=== PATIENT | male | born 1935 | race Caucasian/White ===

== ENCOUNTER 2020-09-26 13:59 | Inpatient (IN) | payer OTHER, MEDICARE ==
[2020-09-26 17:04] LABS: BASO % 0.7 % (0-2.0); LYMPH % 7.8 % (8-40); NEUT % 79.5 % (42.8-82.8); RDW 22.2 % (11.9-15.9); WHITE BLOOD COUNT 12.8 K/mm3 (4.0-10.0)
[2020-09-26 17:12] LABS: INR 1.4 (0.83-1.09)
[2020-09-26 17:15] LABS: ACTIVATED PTT 58.1 SECONDS (25.2-36.5)
[2020-09-26 17:25] LABS: POTASSIUM 4.4 mmol/L (3.5-5.1)
[2020-09-26 17:27] LABS: ALBUMIN 2.6 g/dl (3.4-5.0); BLOOD UREA NITROGEN 26.6 mg/dL (7-18); CALCIUM 8.2 mg/dL (8.5-10.1)
[2020-09-26 17:30] LABS: CREATININE 1.4 mg/dL (0.55-1.3)
[2020-09-26 17:38] LABS: ANISOCYTOSIS 3+; MACROCYTOSIS 1+
[2020-09-26 17:39] LABS: PLATELET ESTIMATE ADEQUATE; TARGET CELLS 1+; TEAR DROP CELLS 1+
[2020-09-26] MEDS ORDERED: ACETAMINOPHEN 500 MG TABLET (FP) PO ONE (18:09)
[2020-09-26] MEDS ORDERED: SODIUM CHLORIDE 500 ML IV STA (18:17)
[2020-09-26] MEDS ORDERED: ACETAMINOPHEN INJECTION 100 ML IVPB ONE (18:33)
[2020-09-26 19:51] LABS: EPI CELLS 4 /uL (0-25.1); HYALINE CASTS 12 /uL (0-3.1); URINE APPEARANCE TURBID; URINE BACTERIA >9,000 /uL (0-1359); URINE BILIRUBIN NEGATIVE (NEGATIVE); URINE COLOR ORANGE; URINE GLUCOSE (UA) NEGATIVE (NEGATIVE); URINE KETONE NEGATIVE (NEGATIVE); URINE LEUK ESTERASE 2+ (NEGATIVE); URINE NITRITE NEGATIVE (NEGATIVE); URINE PROTEIN 2+ (NEGATIVE); URINE RBC 2778 /uL (0-23.9); URINE WBC 987 /uL (0-25.8)
[2020-09-26] MEDS ORDERED: ACETAMINOPHEN 325 MG TABLET (FP) PO PRN (20:11)
[2020-09-26] MEDS ORDERED: PATIENT'S OWN MEDICATION (NON-FORMULARY) (Famotidine/Ca Carb/Mag Hydrox [Pepcid Complete T PO PRN (21:12)
[2020-09-27 00:35] LABS: RETICULOCYTES 3.05 % (0.5-1.5)
[2020-09-27 00:41] LABS: HEMATOCRIT 22.7 % (35.4-49); HEMOGLOBIN 7.3 GM/dL (11.7-16.9); MCH 34.4 pg (25.7-33.7); MEAN CELL VOLUME 106.8 fl (80-96); RBC 2.12 M/mm3 (4.00-5.60)
[2020-09-27 00:42] LABS: MCHC 32.3 g/dl (32.0-35.9); MEAN PLT VOLUME 8.9 fl (7.5-11.1); PLATELET COUNT 317 K/MM3 (134-434)
[2020-09-27] MEDS: ACETAMINOPHEN 500 MG TABLET (FP) PO PRN (02:24)
[2020-09-27] MEDS: MINERAL OIL/PETROLATUM,WHITE 3.5 GM TUBE OU SCH ×2 (02:42→13:22)
[2020-09-27 08:44] LABS: BASO % 0.5 % (0-2.0); EOS % 0.7 % (0-4.5); HEMATOCRIT 25.1 % (35.4-49); HEMOGLOBIN 8.2 GM/dL (11.7-16.9); LYMPH % 3.9 % (8-40); MCHC 32.8 g/dl (32.0-35.9); MEAN CELL VOLUME 103.7 fl (80-96); MEAN PLT VOLUME 8.6 fl (7.5-11.1); MONO % 6.6 % (3.8-10.2); NEUT % 88.3 % (42.8-82.8); PLATELET COUNT 303 K/MM3 (134-434); RBC 2.42 M/mm3 (4.00-5.60); RDW 22.1 % (11.9-15.9); WHITE BLOOD COUNT 17.4 K/mm3 (4.0-10.0)
[2020-09-27 08:57] LABS: POTASSIUM 4.7 mmol/L (3.5-5.1)
[2020-09-27] MEDS ORDERED: PT OWN MED DRAWER 7, Y5N ONE (09:00)
[2020-09-27 09:06] LABS: ALBUMIN 2.5 g/dl (3.4-5.0); BLOOD UREA NITROGEN 23.9 mg/dL (7-18)
[2020-09-27 09:07] LABS: BILIRUBIN,TOTAL 1.9 mg/dL (0.2-1); TOT PROT 6.1 g/dl (6.4-8.2)
[2020-09-27 09:08] LABS: CALCIUM 8.4 mg/dL (8.5-10.1); MAGNESIUM 2.2 mg/dL (1.8-2.4)
[2020-09-27 09:09] LABS: CREATININE 1.4 mg/dL (0.55-1.3); PHOSPHOROUS 3.4 mg/dL (2.5-4.9)
[2020-09-27] MEDS: PANTOPRAZOLE 40 MG TABLET PO SCH (09:20)
[2020-09-27] MEDS: TAMSULOSIN HCL 0.4 MG CAP PO SCH (09:20)
[2020-09-27] MEDS: CYANOCOBALAMIN 1,000 MCG TABLET (FP) PO SCH (09:20)
[2020-09-27] MEDS: ALLOPURINOL 300 MG TABLET (FP) PO SCH (09:21)
[2020-09-27] MEDS: METHADONE HCL 5 MG TABLET PO PRN (09:21)
[2020-09-27] MEDS: DULoxetine HCL 30 MG CAPSULE.DR PO SCH (13:22)
[2020-09-27] MEDS: BUMETANIDE 1 MG TABLET PO SCH (13:23)
[2020-09-27] MEDS: MULTIVITAMINS THER W-MINERALS COMBO TABLET (FP) PO SCH (13:23)
[2020-09-27] MEDS: PATIENT'S OWN MEDICATION (NON-FORMULARY) (Brimonidine Tartrate/Timolol [Combigan 0.2%-0.5% OU SCH (16:59)
[2020-09-27] MEDS: PATIENT'S OWN MEDICATION (NON-FORMULARY) (Brinzolamide 1 DROP Drops) OU SCH (16:59)
[2020-09-27] MEDS: PATIENT'S OWN MEDICATION (NON-FORMULARY) (Netarsudil Mesylat/Latanoprost [Rocklatan 0.02%- OU SCH (22:10)
[2020-09-28] MEDS: ACETAMINOPHEN 500 MG TABLET (FP) PO PRN ×2 (01:35→18:00)
[2020-09-28 09:25] LABS: HEMATOCRIT 24.6 % (35.4-49); HEMOGLOBIN 8.1 GM/dL (11.7-16.9); MCH 33.9 pg (25.7-33.7); MCHC 32.9 g/dl (32.0-35.9); MEAN PLT VOLUME 8.9 fl (7.5-11.1); PLATELET COUNT 285 K/MM3 (134-434); RBC 2.39 M/mm3 (4.00-5.60); RDW 21.5 % (11.9-15.9); WHITE BLOOD COUNT 25.8 K/mm3 (4.0-10.0)
[2020-09-28 09:45] LABS: POTASSIUM 4.6 mmol/L (3.5-5.1)
[2020-09-28 10:01] LABS: BLOOD UREA NITROGEN 23.4 mg/dL (7-18)
[2020-09-28 10:02] LABS: ALBUMIN 2.3 g/dl (3.4-5.0)
[2020-09-28 10:04] LABS: CREATININE 1.4 mg/dL (0.55-1.3)
[2020-09-28 10:05] LABS: BILIRUBIN,TOTAL 1.4 mg/dL (0.2-1); MAGNESIUM 1.8 mg/dL (1.8-2.4)
[2020-09-28 10:06] LABS: PHOSPHOROUS 3.2 mg/dL (2.5-4.9)
[2020-09-28 10:08] LABS: CALCIUM 8.3 mg/dL (8.5-10.1)
[2020-09-28 10:10] LABS: TOT PROT 5.6 g/dl (6.4-8.2)
[2020-09-28] MEDS: ALLOPURINOL 300 MG TABLET (FP) PO SCH (10:39)
[2020-09-28] MEDS: TAMSULOSIN HCL 0.4 MG CAP PO SCH (10:39)
[2020-09-28] MEDS: CYANOCOBALAMIN 1,000 MCG TABLET (FP) PO SCH (10:39)
[2020-09-28] MEDS: MULTIVITAMINS THER W-MINERALS COMBO TABLET (FP) PO SCH (10:39)
[2020-09-28] MEDS: PANTOPRAZOLE 40 MG TABLET PO SCH (10:40)
[2020-09-28] MEDS: BUMETANIDE 1 MG TABLET PO SCH (10:40)
[2020-09-28] MEDS: DULoxetine HCL 30 MG CAPSULE.DR PO SCH (10:40)
[2020-09-28] MEDS: METHADONE HCL 5 MG TABLET PO PRN (10:41)
[2020-09-28] MEDS: MINERAL OIL/PETROLATUM,WHITE 3.5 GM TUBE OU SCH ×2 (10:41→11:28)
[2020-09-28] MEDS: PATIENT'S OWN MEDICATION (NON-FORMULARY) (Brinzolamide 1 DROP Drops) OU SCH ×2 (11:03→11:52)
[2020-09-28] MEDS: PATIENT'S OWN MEDICATION (NON-FORMULARY) (Brimonidine Tartrate/Timolol [Combigan 0.2%-0.5% OU SCH ×2 (11:03→11:52)
[2020-09-28] MEDS: ARTIFICIAL TEARS (POLYVINYL ALCOHOL) OPTH DROPS OU PRN ×2 (11:48→22:48)
[2020-09-28 12:08] LABS: ANISOCYTOSIS 0; MACROCYTOSIS 0; PLATELET ESTIMATE NORMAL
[2020-09-28] MEDS ORDERED: CASIRIVIMAB (REGN10933) 1,200 MG, IMDEVIMAB (REGN10987) 1,200 MG in SODIUM CHLORIDE 250 ML IVPB ONE (15:30)
[2020-09-28] MEDS: PATIENT'S OWN MEDICATION (NON-FORMULARY) (Netarsudil Mesylat/Latanoprost [Rocklatan 0.02%- OU SCH (22:30)
[2020-09-29] MEDS: ACETAMINOPHEN 500 MG TABLET (FP) PO PRN ×3 (02:17→19:28)
[2020-09-29] MEDS: PATIENT'S OWN MEDICATION (NON-FORMULARY) (Omega-3s/Dha/Epa/Fish Oil [Fish Oil 1,200 Mg Sof PO SCH (07:33)
[2020-09-29] MEDS: PATIENT'S OWN MEDICATION (NON-FORMULARY) (Netarsudil Mesylat/Latanoprost [Rocklatan 0.02%- OU SCH ×2 (07:34→22:45)
[2020-09-29 08:49] LABS: BASO % 0.4 % (0-2.0); EOS % 2.1 % (0-4.5); HEMATOCRIT 22.9 % (35.4-49); HEMOGLOBIN 7.5 GM/dL (11.7-16.9); LYMPH % 7.1 % (8-40); MCH 33.7 pg (25.7-33.7); MCHC 32.8 g/dl (32.0-35.9); MEAN CELL VOLUME 102.7 fl (80-96); MEAN PLT VOLUME 9.1 fl (7.5-11.1); MONO % 7.9 % (3.8-10.2); NEUT % 82.5 % (42.8-82.8); PLATELET COUNT 267 K/MM3 (134-434); RBC 2.23 M/mm3 (4.00-5.60); RDW 21.5 % (11.9-15.9); WHITE BLOOD COUNT 14.2 K/mm3 (4.0-10.0)
[2020-09-29 09:07] LABS: POTASSIUM 4.2 mmol/L (3.5-5.1)
[2020-09-29 09:17] LABS: ALBUMIN 2.2 g/dl (3.4-5.0)
[2020-09-29 09:18] LABS: BILIRUBIN,TOTAL 0.9 mg/dL (0.2-1); TOT PROT 5.6 g/dl (6.4-8.2)
[2020-09-29 09:19] LABS: BLOOD UREA NITROGEN 26.6 mg/dL (7-18); CALCIUM 8.5 mg/dL (8.5-10.1); MAGNESIUM 1.9 mg/dL (1.8-2.4)
[2020-09-29 09:20] LABS: CREATININE 1.5 mg/dL (0.55-1.3)
[2020-09-29 09:22] LABS: PHOSPHOROUS 3.4 mg/dL (2.5-4.9)
[2020-09-29] MEDS: CYANOCOBALAMIN 1,000 MCG TABLET (FP) PO SCH (09:55)
[2020-09-29] MEDS: ALLOPURINOL 300 MG TABLET (FP) PO SCH (09:56)
[2020-09-29] MEDS: TAMSULOSIN HCL 0.4 MG CAP PO SCH (09:56)
[2020-09-29] MEDS: MULTIVITAMINS THER W-MINERALS COMBO TABLET (FP) PO SCH (09:56)
[2020-09-29] MEDS: PANTOPRAZOLE 40 MG TABLET PO SCH (09:56)
[2020-09-29] MEDS: DULoxetine HCL 30 MG CAPSULE.DR PO SCH (09:57)
[2020-09-29] MEDS: BUMETANIDE 1 MG TABLET PO SCH (09:57)
[2020-09-29] MEDS: PATIENT'S OWN MEDICATION (NON-FORMULARY) (Brimonidine Tartrate/Timolol [Combigan 0.2%-0.5% OU SCH (11:10)
[2020-09-29] MEDS: PATIENT'S OWN MEDICATION (NON-FORMULARY) (Brinzolamide 1 DROP Drops) OU SCH (11:10)
[2020-09-29] MEDS: MINERAL OIL/PETROLATUM,WHITE 3.5 GM TUBE OU SCH (11:10)
[2020-09-29] MEDS: hydrOXYzine PAMOATE 25 MG CAPSULE (FP) PO PRN (16:29)
[2020-09-29] MEDS ORDERED: PT OWN MED DRAWER 7, Y5N ONE (17:56)
[2020-09-29] MEDS: PATIENT'S OWN MEDICATION (NON-FORMULARY) (Pilocarpine Hcl [Pilocarpine Hcl] 5 MG Tablet) PO PRN (19:33)
[2020-09-30] MEDS: ARTIFICIAL TEARS (POLYVINYL ALCOHOL) OPTH DROPS OU PRN ×2 (02:04→11:00)
[2020-09-30] MEDS: hydrOXYzine PAMOATE 25 MG CAPSULE (FP) PO PRN (03:47)
[2020-09-30] MEDS: METHADONE HCL 10 MG TABLET PO PRN (08:16)
[2020-09-30] MEDS: MINERAL OIL/PETROLATUM,WHITE 3.5 GM TUBE OU SCH ×2 (09:30→11:08)
[2020-09-30 10:08] LABS: POTASSIUM 3.5 mmol/L (3.5-5.1)
[2020-09-30 10:10] LABS: ALBUMIN 2.2 g/dl (3.4-5.0); BLOOD UREA NITROGEN 25.9 mg/dL (7-18); CALCIUM 8.2 mg/dL (8.5-10.1)
[2020-09-30 10:14] LABS: CREATININE 1.5 mg/dL (0.55-1.3)
[2020-09-30 10:15] LABS: TOT PROT 5.6 g/dl (6.4-8.2)
[2020-09-30] MEDS: ALLOPURINOL 300 MG TABLET (FP) PO SCH (10:59)
[2020-09-30] MEDS: TAMSULOSIN HCL 0.4 MG CAP PO SCH (10:59)
[2020-09-30] MEDS: PATIENT'S OWN MEDICATION (NON-FORMULARY) (Brimonidine Tartrate/Timolol [Combigan 0.2%-0.5% OU SCH (10:59)
[2020-09-30] MEDS: MULTIVITAMINS THER W-MINERALS COMBO TABLET (FP) PO SCH (10:59)
[2020-09-30] MEDS: PATIENT'S OWN MEDICATION (NON-FORMULARY) (Brinzolamide 1 DROP Drops) OU SCH (10:59)
[2020-09-30] MEDS: CYANOCOBALAMIN 1,000 MCG TABLET (FP) PO SCH (10:59)
[2020-09-30] MEDS: PANTOPRAZOLE 40 MG TABLET PO SCH (10:59)
[2020-09-30] MEDS: DULoxetine HCL 30 MG CAPSULE.DR PO SCH (11:00)
[2020-09-30] MEDS: BUMETANIDE 1 MG TABLET PO SCH (11:00)
[2020-09-30] MEDS: PATIENT'S OWN MEDICATION (NON-FORMULARY) (Pilocarpine Hcl [Pilocarpine Hcl] 5 MG Tablet) PO PRN (11:01)
[2020-09-30 11:17] LABS: HEMATOCRIT 24.6 % (35.4-49); HEMOGLOBIN 8.1 GM/dL (11.7-16.9); MCH 33.7 pg (25.7-33.7); MEAN CELL VOLUME 102.4 fl (80-96); MEAN PLT VOLUME 9.3 fl (7.5-11.1); PLATELET COUNT 273 K/MM3 (134-434); RDW 21.7 % (11.9-15.9); WHITE BLOOD COUNT 9.4 K/mm3 (4.0-10.0)
[2020-09-30] MEDS ORDERED: PT OWN MED DRAWER 7, Y5N ONE (11:54)
[2020-09-30] MEDS: ACETAMINOPHEN 500 MG TABLET (FP) PO PRN (23:08)
[2020-09-30] MEDS: PATIENT'S OWN MEDICATION (NON-FORMULARY) (Netarsudil Mesylat/Latanoprost [Rocklatan 0.02%- OU SCH (23:08)
[2020-10-01] MEDS: hydrOXYzine PAMOATE 25 MG CAPSULE (FP) PO PRN ×2 (01:05→21:23)
[2020-10-01] MEDS ORDERED: PT OWN MED DRAWER 7, Y5N ONE ×4 (09:17→20:55)
[2020-10-01] MEDS: METHADONE HCL 10 MG TABLET PO PRN (09:52)
[2020-10-01] MEDS: CYANOCOBALAMIN 1,000 MCG TABLET (FP) PO SCH (09:53)
[2020-10-01] MEDS: MULTIVITAMINS THER W-MINERALS COMBO TABLET (FP) PO SCH (09:53)
[2020-10-01] MEDS: ALLOPURINOL 300 MG TABLET (FP) PO SCH (09:53)
[2020-10-01] MEDS: TAMSULOSIN HCL 0.4 MG CAP PO SCH (09:53)
[2020-10-01] MEDS: PANTOPRAZOLE 40 MG TABLET PO SCH (09:54)
[2020-10-01] MEDS: DULoxetine HCL 30 MG CAPSULE.DR PO SCH (09:56)
[2020-10-01] MEDS: PATIENT'S OWN MEDICATION (NON-FORMULARY) (Brinzolamide 1 DROP Drops) OU SCH (09:56)
[2020-10-01 09:57] LABS: HEMATOCRIT 26.8 % (35.4-49); HEMOGLOBIN 8.9 GM/dL (11.7-16.9); MCH 33.6 pg (25.7-33.7); MEAN CELL VOLUME 101.7 fl (80-96); MEAN PLT VOLUME 8.9 fl (7.5-11.1); PLATELET COUNT 293 K/MM3 (134-434); RBC 2.63 M/mm3 (4.00-5.60); RDW 21.6 % (11.9-15.9); WHITE BLOOD COUNT 10.2 K/mm3 (4.0-10.0)
[2020-10-01] MEDS: BUMETANIDE 1 MG TABLET PO SCH (09:57)
[2020-10-01] MEDS: MINERAL OIL/PETROLATUM,WHITE 3.5 GM TUBE OU SCH (10:10)
[2020-10-01 10:21] LABS: POTASSIUM 3.7 mmol/L (3.5-5.1)
[2020-10-01 10:22] LABS: CALCIUM 8.9 mg/dL (8.5-10.1)
[2020-10-01 10:23] LABS: BLOOD UREA NITROGEN 24.6 mg/dL (7-18); MAGNESIUM 1.9 mg/dL (1.8-2.4)
[2020-10-01 10:26] LABS: CREATININE 1.5 mg/dL (0.55-1.3); PHOSPHOROUS 3.4 mg/dL (2.5-4.9)
[2020-10-01] MEDS: PATIENT'S OWN MEDICATION (NON-FORMULARY) (Pilocarpine Hcl [Pilocarpine Hcl] 5 MG Tablet) PO PRN (14:36)
[2020-10-01] MEDS: ACETAMINOPHEN 500 MG TABLET (FP) PO PRN (14:36)
[2020-10-01] MEDS: PATIENT'S OWN MEDICATION (NON-FORMULARY) (Brimonidine Tartrate/Timolol [Combigan 0.2%-0.5% OU SCH (15:19)
[2020-10-01] MEDS: TIMOLOL 0.5% OPHTHALMIC SOL 5 ML BOTTLE OU SCH (17:25)
[2020-10-01] MEDS: BRIMONIDINE TARTRATE 0.2% OPHTHALMIC 5 ML BOTTLE OU SCH (17:26)
[2020-10-01] MEDS: PATIENT'S OWN MEDICATION (NON-FORMULARY) (Netarsudil Mesylat/Latanoprost [Rocklatan 0.02%- OU SCH (21:23)
[2020-10-02] MEDS: ACETAMINOPHEN 500 MG TABLET (FP) PO PRN ×2 (03:06→13:22)
[2020-10-02] MEDS ORDERED: PT OWN MED DRAWER 7, Y5N ONE ×4 (03:25→20:44)
[2020-10-02] MEDS: PATIENT'S OWN MEDICATION (NON-FORMULARY) (Pilocarpine Hcl [Pilocarpine Hcl] 5 MG Tablet) PO PRN ×3 (03:26→21:03)
[2020-10-02 09:40] LABS: HEMATOCRIT 27.2 % (35.4-49); HEMOGLOBIN 9.2 GM/dL (11.7-16.9); MCH 34.2 pg (25.7-33.7); MCHC 33.7 g/dl (32.0-35.9); MEAN CELL VOLUME 101.4 fl (80-96); MEAN PLT VOLUME 8.8 fl (7.5-11.1); PLATELET COUNT 280 K/MM3 (134-434); RBC 2.68 M/mm3 (4.00-5.60); RDW 21.3 % (11.9-15.9); WHITE BLOOD COUNT 10.9 K/mm3 (4.0-10.0)
[2020-10-02] MEDS: PANTOPRAZOLE 40 MG TABLET PO SCH (09:52)
[2020-10-02] MEDS: MULTIVITAMINS THER W-MINERALS COMBO TABLET (FP) PO SCH (09:52)
[2020-10-02] MEDS: METHADONE HCL 10 MG TABLET PO PRN (09:52)
[2020-10-02] MEDS: ALLOPURINOL 300 MG TABLET (FP) PO SCH (09:52)
[2020-10-02] MEDS: DULoxetine HCL 30 MG CAPSULE.DR PO SCH (09:53)
[2020-10-02] MEDS: BUMETANIDE 1 MG TABLET PO SCH (09:53)
[2020-10-02] MEDS: BISACODYL 5 MG TABLET.DR (FP) PO PRN (09:53)
[2020-10-02] MEDS: hydrOXYzine PAMOATE 25 MG CAPSULE (FP) PO PRN ×2 (09:53→21:02)
[2020-10-02] MEDS: TAMSULOSIN HCL 0.4 MG CAP PO SCH (09:53)
[2020-10-02] MEDS: BRIMONIDINE TARTRATE 0.2% OPHTHALMIC 5 ML BOTTLE OU SCH (09:54)
[2020-10-02] MEDS: MINERAL OIL/PETROLATUM,WHITE 3.5 GM TUBE OU SCH (09:55)
[2020-10-02] MEDS: CYANOCOBALAMIN 1,000 MCG TABLET (FP) PO SCH (09:55)
[2020-10-02] MEDS: PATIENT'S OWN MEDICATION (NON-FORMULARY) (Brinzolamide 1 DROP Drops) OU SCH (09:55)
[2020-10-02] MEDS: TIMOLOL 0.5% OPHTHALMIC SOL 5 ML BOTTLE OU SCH (09:55)
[2020-10-02] MEDS ORDERED: TIMOLOL 0.5% OPHTHALMIC SOL 5 ML BOTTLE OU SCH (10:00)
[2020-10-02] MEDS ORDERED: BRIMONIDINE TARTRATE 0.2% OPHTHALMIC 5 ML BOTTLE OU SCH (10:00)
[2020-10-02] MEDS ORDERED: DOCUSATE SODIUM 100 MG CAPSULE (FP) PO PRN (13:23)
[2020-10-02] MEDS: POLYETHYLENE GLYCOL 3350 119 GM BTL PO PRN (14:41)
[2020-10-02] MEDS: ARTIFICIAL TEARS (POLYVINYL ALCOHOL) OPTH DROPS OU PRN (14:42)
[2020-10-02 16:11] VITALS: BMI 28.3
[2020-10-02] MEDS: PATIENT'S OWN MEDICATION (NON-FORMULARY) (Netarsudil Mesylat/Latanoprost [Rocklatan 0.02%- OU SCH ×2 (20:20→21:13)
[2020-10-03] MEDS ORDERED: PT OWN MED DRAWER 7, Y5N ONE ×3 (05:20→11:21)
[2020-10-03] MEDS: PANTOPRAZOLE 40 MG TABLET PO SCH (11:27)
[2020-10-03] MEDS: CYANOCOBALAMIN 1,000 MCG TABLET (FP) PO SCH (11:27)
[2020-10-03] MEDS: MULTIVITAMINS THER W-MINERALS COMBO TABLET (FP) PO SCH (11:27)
[2020-10-03] MEDS: TAMSULOSIN HCL 0.4 MG CAP PO SCH (11:27)
[2020-10-03] MEDS: ALLOPURINOL 300 MG TABLET (FP) PO SCH (11:27)
[2020-10-03] MEDS: hydrOXYzine PAMOATE 25 MG CAPSULE (FP) PO PRN (11:31)
[2020-10-03] MEDS: BUMETANIDE 1 MG TABLET PO SCH (11:31)
[2020-10-03] MEDS: DULoxetine HCL 30 MG CAPSULE.DR PO SCH (11:32)
[2020-10-03] MEDS: METHADONE HCL 10 MG TABLET PO PRN (11:33)
[2020-10-03] MEDS: BRIMONIDINE TARTRATE 0.2% OPHTHALMIC 5 ML BOTTLE OU SCH (11:34)
[2020-10-03] MEDS: TIMOLOL 0.5% OPHTHALMIC SOL 5 ML BOTTLE OU SCH (11:34)
[2020-10-03] MEDS: MINERAL OIL/PETROLATUM,WHITE 3.5 GM TUBE OU SCH (11:34)
[2020-10-03] MEDS: PATIENT'S OWN MEDICATION (NON-FORMULARY) (Brinzolamide 1 DROP Drops) OU SCH (11:35)
[2020-10-03] MEDS ORDERED: BENZOCAINE 20 % GEL TUBE MM PRN (13:00)
[2020-10-03] MEDS: BISACODYL 5 MG TABLET.DR (FP) PO PRN (15:49)
[2020-10-03] MEDS: POLYETHYLENE GLYCOL 3350 119 GM BTL PO PRN (15:49)
[2020-10-03] MEDS ORDERED: BENZOCAINE 10 % GEL TUBE MM PRN (16:05)
[2020-10-03] MEDS: VITAMINS A AND D TOPICAL OINTMENT 60 GM TUBE TP SCH ×2 (18:19→23:41)
[2020-10-03] MEDS: PATIENT'S OWN MEDICATION (NON-FORMULARY) (Netarsudil Mesylat/Latanoprost [Rocklatan 0.02%- OU SCH (21:31)
[2020-10-03] MEDS: ACETAMINOPHEN 500 MG TABLET (FP) PO PRN (22:23)
[2020-10-04] MEDS: PATIENT'S OWN MEDICATION (NON-FORMULARY) (Pilocarpine Hcl [Pilocarpine Hcl] 5 MG Tablet) PO PRN ×2 (01:13→11:19)
[2020-10-04] MEDS: hydrOXYzine PAMOATE 25 MG CAPSULE (FP) PO PRN ×3 (01:13→19:04)
[2020-10-04] MEDS ORDERED: PT OWN MED DRAWER 7, Y5N ONE ×2 (01:24→11:18)
[2020-10-04] MEDS: VITAMINS A AND D TOPICAL OINTMENT 60 GM TUBE TP SCH ×3 (05:46→17:00)
[2020-10-04] MEDS ORDERED: MAGNESIUM SULF 50% (8.12 MEQ/2 ML-1 GM VIAL) IVPB ONE (08:23)
[2020-10-04] MEDS ORDERED: BISACODYL 10 MG SUPP.RECT PR ONE (08:24)
[2020-10-04] MEDS: BRIMONIDINE TARTRATE 0.2% OPHTHALMIC 5 ML BOTTLE OU SCH (10:56)
[2020-10-04] MEDS: MINERAL OIL/PETROLATUM,WHITE 3.5 GM TUBE OU SCH (10:56)
[2020-10-04] MEDS: METHADONE HCL 10 MG TABLET PO PRN (10:57)
[2020-10-04] MEDS: TIMOLOL 0.5% OPHTHALMIC SOL 5 ML BOTTLE OU SCH (10:57)
[2020-10-04] MEDS: PATIENT'S OWN MEDICATION (NON-FORMULARY) (Brinzolamide 1 DROP Drops) OU SCH (10:57)
[2020-10-04] MEDS: BISACODYL 5 MG TABLET.DR (FP) PO PRN (11:09)
[2020-10-04] MEDS: PANTOPRAZOLE 40 MG TABLET PO SCH (11:09)
[2020-10-04] MEDS: MULTIVITAMINS THER W-MINERALS COMBO TABLET (FP) PO SCH (11:10)
[2020-10-04] MEDS: TAMSULOSIN HCL 0.4 MG CAP PO SCH (11:10)
[2020-10-04] MEDS: DULoxetine HCL 30 MG CAPSULE.DR PO SCH (11:10)
[2020-10-04] MEDS: ALLOPURINOL 300 MG TABLET (FP) PO SCH (11:10)
[2020-10-04] MEDS: CYANOCOBALAMIN 1,000 MCG TABLET (FP) PO SCH (11:10)
[2020-10-04] MEDS: POLYETHYLENE GLYCOL 3350 119 GM BTL PO PRN (11:11)
[2020-10-04] MEDS: BUMETANIDE 1 MG TABLET PO SCH (11:11)
[2020-10-04 14:22] VITALS: BP 111/60; PULSE 75; TEMP 97.9
== END 2020-10-04 19:14 | DRG 871 ==
LOC: JER 13:59 → EDBD 13:59 → JER 17:02 → JERBED 17:28 → J5S 23:03
PROVIDERS: ADMIT Internal Medicine
PROC: 30233N1 Transfusion of Nonautologous Red Blood Cells into Peripheral Vein, Percutaneous Approach (ICD-10-PCS; 2020-09-26)
PROC: 0T9B70Z Drainage of Bladder with Drainage Device, Via Natural or Artificial Opening (ICD-10-PCS; principal; 2020-09-27)
DX: A41.59 Other Gram-negative sepsis (principal); U07.1 COVID-19; J12.82 Pneumonia due to coronavirus disease 2019; I13.0 Hypertensive heart and chronic kidney disease with heart failure and stage 1 through stage 4 chronic kidney disease, or unspecified chronic kidney disease; N39.0 Urinary tract infection, site not specified; F11.20 Opioid dependence, uncomplicated; I50.30 Unspecified diastolic (congestive) heart failure; D63.1 Anemia in chronic kidney disease; E88.09 Other disorders of plasma-protein metabolism, not elsewhere classified; R31.9 Hematuria, unspecified; E78.5 Hyperlipidemia, unspecified; I25.10 Atherosclerotic heart disease of native coronary artery without angina pectoris; Z95.5 Presence of coronary angioplasty implant and graft; D64.9 Anemia, unspecified; B96.1 Klebsiella pneumoniae [K. pneumoniae] as the cause of diseases classified elsewhere; K21.9 Gastro-esophageal reflux disease without esophagitis; H40.9 Unspecified glaucoma; N40.0 Benign prostatic hyperplasia without lower urinary tract symptoms
CPT/HCPCS: 36415; 36430; 36511; 71045-TC-FY; 71250-TC; 73560-TC-RT-FY; 80048; 80053; 81003; 82272; 82607; 82728; 82746; 83540; 83550; 83615; 83735; 84100; 85025; 85027; 85045; 85379; 85610; 85730; 86140; 86850; 86900; 86901; 86922; 87040; 87086; 87186; 87804; 87899; 93005; 93010; 93306-TC; 97116-GP; 97162-GP; 99285-25; C9803; M0243; P9016; P9038; Q0243; U0003